=== PATIENT | female | born 1990 | race Hispanic/Latino ===

== ENCOUNTER 2019-03-03 17:40 | Emergency (ER) | payer OTHER ==
[~2019-03-03] VITALS: Ht 157.5 cm; Wt 77.1 kg
[2019-03-03] MEDS ORDERED: AZITHROMYCIN250 MG PO (18:31)
[2019-03-03] MEDS ORDERED: PREDNISONE20 MG PO (18:31)
[2019-03-03] MEDS ORDERED: VENTOLIN HFA18 GM PO (18:31)
== END 2019-03-03 18:46 | disposition home or self-care (01) ==
LOC: FSED 17:40
DX: R05 Cough (principal); R11.0 Nausea; J20.9 Acute bronchitis, unspecified
CPT/HCPCS: 99282